=== PATIENT | female | born 1970 | race Caucasian/White ===

== ENCOUNTER → 2025-08-21 12:07 | Outpatient (REF) | payer OTHER, SELFPAY | LOC: HWRAD 12:07 | PROVIDERS: ATTENDING PHYSICIAN Family Medicine | DX: M25.551 Pain in right hip (principal); M25.552 Pain in left hip; M54.50 Low back pain, unspecified | CPT/HCPCS: 72110; 73502 ==

== ENCOUNTER → 2025-09-15 11:40 | Outpatient (REF) | payer OTHER, SELFPAY | LOC: PET 11:40 | PROVIDERS: ATTENDING PHYSICIAN Nurse Practitioner | DX: D06.0 Carcinoma in situ of endocervix (principal) | CPT/HCPCS: 78815; A9552 ==

== ENCOUNTER → 2025-09-21 10:27 | Outpatient (REF) | payer OTHER, SELFPAY | LOC: MRI 3T 10:27 | PROVIDERS: ATTENDING PHYSICIAN Nurse Practitioner; FAMILY PHYSICIAN Family Medicine | DX: D06.0 Carcinoma in situ of endocervix (principal) | CPT/HCPCS: 72197; A9575 ==